=== PATIENT | female | born 1965 | race Caucasian/White ===

== ENCOUNTER 2017-03-18 13:38 | Emergency (ER) | payer MEDICAID ==
[~2017-03-18] VITALS: Ht 152.4 cm; Wt 64.0 kg
[2017-03-18 14:27] LABS: BASOPHIL % 0.4 % (0-2); PLATELET COUNT 206 x10^3mcL (130-400)
[2017-03-18 14:31] LABS: RED CELL DISTRIBUTION WIDTH 16.9 % (11.5-14.5)
[2017-03-18 14:35] LABS: CALCIUM 8.6 mg/dL (8.5-10.1); CARBON DIOXIDE 39.5 mmol/L (21-32); CHLORIDE SERUM 103 mmol/L (98-107); GFR1 > 60 mL/min; GLUCOSE SERUM 94 mg/dL (74-106); POTASSIUM SERUM 3.2 mmol/L (3.5-5.1); SODIUM SERUM 146 mmol/L (136-145)
[2017-03-18 14:40] LABS: ALKALINE PHOSPHATASE 61 U/L (46-116); ALT/SGPT 24 U/L (14-59); AST/SGOT 21 U/L (15-37); BILIRUBIN TOTAL 0.2 mg/dL (0.20-1.00); TOTAL PROTEIN, SERUM 6.6 g/dL (6.4-8.2)
[2017-03-18 15:12] LABS: AMPHETAMINE QUAL UR NONE DETECTED (NEG <=1000)
[2017-03-18 16:10] VITALS: BP 126/81
--- NOTE | 2017-03-18 17:43 | NUR ---
SOCIAL SERVIE NOTE/LATE ENTRY: RECEIVED REQUEST TO ASSIST WITH THIS PT WHO CAME TO THE ER TODAY FOR ASSISTANCE WITH UNMANAGED PSYCHOLOGICAL PROBLEMS. REVIEWED CASE WITH ER PHYSICIAN WITH RECOMMENDATION TO CONTACT [facility] AND REFER THE PT TO THIS FACILITY FOR FURTHER ASSESSMENT AND MANAGEMENT. PT TRANSPORTED TO [facility]. NO FURTHER FOLLOW-UP NEEDED AT THIS TIME.
== END 2017-03-18 16:10 | disposition home or self-care (01) ==
LOC: ED 13:38
PROVIDERS: Emergency Medicine
DX: F31.9 Bipolar disorder, unspecified (principal); K21.9 Gastro-esophageal reflux disease without esophagitis; I10 Essential (primary) hypertension; Z88.0 Allergy status to penicillin
CPT/HCPCS: 36415; G0480; J2060

== ENCOUNTER 2017-03-20 12:38 | Emergency (ER) | payer MEDICAID ==
[~2017-03-20] VITALS: Ht 152.4 cm; Wt 61.9 kg
[2017-03-20 14:40] VITALS: BP 151/83
== END 2017-03-20 14:40 | disposition home or self-care (01) ==
LOC: ED 12:38
DX: Z76.0 Encounter for issue of repeat prescription (principal); F31.9 Bipolar disorder, unspecified; I10 Essential (primary) hypertension; K21.9 Gastro-esophageal reflux disease without esophagitis